=== PATIENT | female | born 1955 | race Caucasian/White ===

== ENCOUNTER 2020-05-10 16:15 | Emergency (ER) | payer OTHER, SELFPAY ==
[~2020-05-10] VITALS: Ht 154.9 cm; Wt 74.8 kg
[2020-05-10 16:22] VITALS: Ht 154.9 cm; Wt 74.8 kg
[2020-05-10 16:52] LABS: BASOPHIL % 0.7 % (0-2); PLATELET COUNT 211 x10^3mcL (130-400); RED CELL DISTRIBUTION WIDTH 14.7 % (11.5-14.5)
[2020-05-10 17:04] LABS: CALCIUM 8.9 mg/dL (8.5-10.1); CARBON DIOXIDE 28.9 mmol/L (21-32); CHLORIDE SERUM 109 mmol/L (98-107); GFR1 60 mL/min; GLUCOSE SERUM 86 mg/dL (74-106); SODIUM SERUM 143 mmol/L (136-145)
[2020-05-10 17:17] LABS: ALBUMIN 3.8 g/dL (3.4-5.0); ALKALINE PHOSPHATASE 80 U/L (46-116); ALT/SGPT 29 U/L (14-59); AST/SGOT 11 U/L (15-37); BILIRUBIN DIRECT 0.11 mg/dL (0.0-0.2); BILIRUBIN TOTAL 0.47 mg/dL (0.20-1.00); FREE T4 0.94 ng/dL (0.76-1.46); TOTAL PROTEIN, SERUM 6.9 g/dL (6.4-8.2)
[2020-05-10 19:47] LABS: AMPHETAMINE QUAL UR NONE DETECTED (See below)
[2020-05-11 21:29] VITALS: BP 102/67
== END 2020-05-11 22:21 | disposition short-term general hospital (02) ==
LOC: ED 16:15
PROVIDERS: Student in an Organized Health Care Education/Training Program
DX: S01.411A Laceration without foreign body of right cheek and temporomandibular area, initial encounter (principal); S01.81XA Laceration without foreign body of other part of head, initial encounter; Z20.828 Contact with and (suspected) exposure to other viral communicable diseases; T46.5X1A Poisoning by other antihypertensive drugs, accidental (unintentional), initial encounter; W45.8XXA Other foreign body or object entering through skin, initial encounter; Y93.89 Activity, other specified; Y92.89 Other specified places as the place of occurrence of the external cause; Y99.8 Other external cause status
CPT/HCPCS: 84439; 90715; G0480; J2001; U0003-CS

== ENCOUNTER 2020-07-12 15:07 | Emergency (ER) | payer OTHER ==
[~2020-07-12] VITALS: Ht 154.9 cm; Wt 78.5 kg
[2020-07-12 15:17] VITALS: BP 147/87; Ht 154.9 cm; Wt 78.5 kg
== END 2020-07-12 15:50 | disposition home or self-care (01) ==
LOC: ED 15:07
DX: K02.9 Dental caries, unspecified (principal); I10 Essential (primary) hypertension; E78.00 Pure hypercholesterolemia, unspecified; F31.9 Bipolar disorder, unspecified; F43.10 Post-traumatic stress disorder, unspecified; F41.9 Anxiety disorder, unspecified